=== PATIENT | female | born 1965 | race African-American/Black ===

== ENCOUNTER 2022-02-25 09:39 | Emergency (ER) | payer OTHER, SELFPAY ==
--- NOTE | 2022-02-25 09:43 | ED.URI ---
HPI - URI/Sore Throat General Chief Complaint: Upper Respiratory Infection Stated Complaint: Sinus Time Seen by Provider: 02/25/22 09:42 Source: patient Mode of arrival: ambulatory Limitations: no limitations History of Present Illness HPI Narrative: Miss Will is a 56-year-old female patient presenting to the clinic today with complaints of sinus congestion x1 week. She reports that she is bringing up some green phlegm. She denies any fever or chills. She reports that she gets sinusitis /bronchitis yearly and her PCP usually gives her a Z-Ced however her PCP is out of the country at this time. States she just came back from [facility] last week when the symptoms started. She denies any history of COPD or asthma. She is not a tobacco user MD elicited complaint: sore throat and nasal congestion Related Data Home Medications Medication Instructions Recorded Confirmed celecoxib 200 mg capsule 200 mg PO DAILY 02/25/22 02/25/22 folic acid 1 mg tablet 1 mg PO DAILY 02/25/22 02/25/22 gabapentin 600 mg tablet 600 mg PO DAILY 02/25/22 02/25/22 leflunomide 10 mg tablet 10 mg PO DAILY 02/25/22 02/25/22 methotrexate sodium 2.5 mg tablet 2.5 mg PO DAILY 02/25/22 02/25/22 montelukast 10 mg tablet 10 mg PO DAILY 02/25/22 02/25/22 prednisone 5 mg tablet 5 mg PO DAILY 02/25/22 02/25/22 Review of Systems Review of Systems: Pertinent positives per HPI. Patient denies any fever, chills, rash, visual changes, dizziness, shortness of breath, chest pain, palpitations, nausea, vomiting, diarrhea, constipation, abdominal pain, or any urinary issues. [facility] Comments At the time of my signature, I reviewed and agree with the nursing past medical, surgical, social, and family history. There is no relevant family history pertinent to the patient complaint. Exam Narrative: General: Well-developed, obese, in no apparent distress Head: Normocephalic, atraumatic Eyes: Pupils equally round and reactive to light bilaterally, EOM intact, sclera and conjunctive clear, no discharge, lids normal Ears: TMs intact and clear, ear canals clear, no drainage, grossly hearing normal. Nose: Nares patent, clear nasal discharge, moderate inflammation, mild sinus tenderness. Mouth: Oral pharynx without lesions or masses, good dentition, MMM. PND Neck: Supple, trachea midline, no enlargement of anterior or posterior cervical nodes, no thyroid masses or goiter palpable. Cardio: Regular rate and rhythm, s1 and s2 normal, no murmur appreciated. Resp: Clear to auscultation bilaterally, no rhonchi, rales, wheezing or rubs Course Course Emergency Course: Portions of this record may have been created with voice recognition software. Level of Care: Express Care Visit Vital Signs Vital signs: Vital signs reviewed MDM - URI/Sore Throat MDM Narrative Medical decision making narrative: at the time of visit patient is resting comfortably on the exam table. I suspect the patient has an upper respiratory infection. She is requesting antibiotics however I discussed that I do not feel so antibiotics are necessary at this time as she has not had symptoms for over 10 days to treat bacterial sinusitis. Will give prescription for prednisone 40 mg daily x5 days to help with nasal sinus swelling and congestion. Other supportive measures were discussed with the patient she voiced understanding and was discharged. Differential Diagnosis Differential diagnosis: Likely upper respiratory infection, otitis media, sinusitis, viral infection, bronchitis, influenza, pharyngitis and other ( COVID) Discharge Plan Discharge Clinical Impression: Acute upper respiratory infection, Post-nasal drip Patient Disposition: Home, Self-Care Condition: Stable Instructions: Antibiotic Form, Upper Respiratory Infection (ED), Postnasal Drip (DC) Additional Instructions: Take prescription medications only as prescribed- prednisone Increase fluids and stay well hydrated Tylenol/motrin fo
[2022-02-25 09:49] VITALS: BP 129/69; PULSE 79; RESP 18; TEMP 35.7; O2SAT 100
== END 2022-02-25 10:01 | disposition home or self-care (01) ==
PROVIDERS: Emergency Provider Nurse Practitioner Family
DX: J06.9 Acute upper respiratory infection, unspecified (principal); R09.82 Postnasal drip; E78.00 Pure hypercholesterolemia, unspecified; I10 Essential (primary) hypertension; K21.9 Gastro-esophageal reflux disease without esophagitis; M06.9 Rheumatoid arthritis, unspecified
CPT/HCPCS: 99203; G0463